=== PATIENT | male | born 1945 | race Two or more races ===

== ENCOUNTER 2023-07-12 02:04 | Inpatient (IN) | payer OTHER, MEDICAID ==
[2023-07-12] VITALS (13 sets, daily range): BP systolic 86–104; BP diastolic 48–70; PULSE 0–102; RESP 0–18; O2SAT 92–98
[~2023-07-12] VITALS: Ht 160 cm; Wt 65.8 kg
[~2023-07-12 02:04] MED LIST: FLUT250M2 IN; IPRAAER6 IN
[2023-07-12] MEDS: NOREPINEPHRINE 8 MG/250ML KIT 250 ML IV ONE (02:19)
[2023-07-12] MEDS: NOREPINEPHRINE 8 MG/250ML KIT 250 ML IV SCH (02:20)
[2023-07-12 02:50] LABS: Chloride 109 mmol/L (98-107); Potassium 4.7 mmol/L (3.5-5.1); Sodium 142 mmol/L (136-145)
[2023-07-12 02:51] LABS: Anion Gap 13 (5-15); Carbon Dioxide 20 mmol/L (20-30)
[2023-07-12 02:52] LABS: Calcium 8.7 mg/dL (8.7-10.4); Mean Corpuscular Hemoglobin 26.3 pg (28.0-32.0); Red Blood Cells 4.57 10^6/uL (4.5-5.90)
[2023-07-12 02:53] LABS: Hematocrit 41.2 % (41.0-53.0); Mean Corpuscular Hgb Conc. 29.1 g/dL (32.0-36.0); Mean Corpuscular Volume 90.1 fL (80.0-100.0); Red Cell Distribution Width 15.1 % (11.8-14.3)
[2023-07-12 02:57] LABS: BUN/Creatinine Ratio 17.1 (10.0-20.0); Blood Urea Nitrogen 19 mg/dL (9-23); Glucose 310 mg/dL (74-106); White Blood Cell 42.4 10^3/uL (4.4-10.8)
[2023-07-12 02:58] LABS: Band Neutrophils % (manual) 0; Basophils % (manual) 0 (0.0-2.0); Blast Cells 0; Eosinophils % (manual) 0 (0-7); Metamyelocytes % 0; Monocytes % (manual) 0 (0-12); Myelocytes % 0; Promyelocytes % 0
[2023-07-12] MEDS: MIDAZOLAM DRIP 50 mg/50mL 50 ML IV ONE (03:14)
[2023-07-12] MEDS: MIDAZOLAM DRIP 50 mg/50mL 50 ML IV SCH (03:20)
[2023-07-12 03:43] LABS: Large Platelets FEW; Lymphocytes % (manual) 87 (10.0-50.0); Ovalocytes FEW; Platelet Estimate Decreased; Reactive Lymphocytes 5
[2023-07-12 03:52] LABS: Urine Bacteria None Seen /hpf (None Seen)
[2023-07-12 04:01] LABS: Base Excess -10.8 mmol/L (-2.0-2.0)
[2023-07-12] MEDS: fentaNYL Drip 2500mCg/250mlNS 250 ML IV SCH (04:05)
[2023-07-12 04:19] LABS: Urine Blood 3+ /uL (Negative); Urine Clarity Ex.Turbid (Clear); Urine Color Light-Red (Yellow); Urine Hyaline Cast MOD /lpf (0 - 2); Urine Protein, UAD 3+ (Negative); Urine Specific Gravity 1.012 (1.001-1.035); Urine Sperm PRESENT /hpf (None Seen); Urine Urobilinogen Normal (Negative); Urine WBC 8 /hpf (0 - 3); Urine WBC Clumps PRESENT /hpf (None Seen); Urine pH 7.5 (5.0-9.0)
[2023-07-12 04:45] LABS: Base Excess -8.9 mmol/L (-2.0-2.0)
[2023-07-12] MEDS ORDERED: NITROGLYCERIN 0.4 MG SL TAB SL PRN (05:00)
[2023-07-12] MEDS ORDERED: ONDANSETRON HCL 4 MG/2 ML VIAL IV PRN (05:00)
[2023-07-12] MEDS ORDERED: MORPHINE SULFATE INJ 2 MG/ml SYRG IV PRN (05:00)
[2023-07-12] MEDS ORDERED: ALBUTEROL SULF 2.5 MG/0.5ML(0.5%) NEB SOLN NEB PRN (05:00)
[2023-07-12] MEDS ORDERED: ACETAMINOPHEN 325 MG TAB PO PRN (05:00)
[2023-07-12] MEDS ORDERED: VANCOMYCIN PER PHARMACY 0 MG IV SCH (05:00)
[2023-07-12] MEDS: VANCOMYCIN 1GM/200ML 200 ML IV ONE (06:44)
[2023-07-12] MEDS: SODIUM CHLORIDE 0.9% 500 ML IV ONE (06:45)
[2023-07-12] MEDS: SODIUM CHLORIDE 0.9% 1,000 ML IV ONE (06:45)
[2023-07-12] MEDS: PIPERACILLIN-TAZOB 3.375GM 100 ML IV SCH (07:00)
[2023-07-12 07:14] LABS: Lactic Acid w/Reflex 2.9 mmol/L (0.4-2.0)
[2023-07-12] MEDS: ENOXAPARIN SOD 40 MG/0.4 ML SYRINGE SC SCH (10:00)
[2023-07-12 12:22] LABS: Alanine Aminotransferase 686 U/L (7-40); Alkaline Phosphatase 128 U/L (46-116); Anion Gap 11 (5-15); Aspartate Aminotransferase 532 U/L (13-40); Calcium 8.7 mg/dL (8.5-10.1); Carbon Dioxide 21 mmol/L (20-30); Chloride 110 mmol/L (98-107); Potassium 4.7 mmol/L (3.5-5.1); Sodium 142 mmol/L (136-145)
[2023-07-12 12:23] LABS: Bilirubin, Total 0.7 mg/dL (0.2-1.0); Total Protein 5.5 g/dL (5.7-8.2)
[2023-07-12 12:27] LABS: Albumin 3.4 g/dL (3.2-4.8)
[2023-07-12 12:30] LABS: Blood Urea Nitrogen 31 mg/dL (9-23); Glucose 184 mg/dL (74-106)
[2023-07-12] MEDS: IOHEXOL 350 MG/ML 100ML IJ ONE ×2 (17:24→17:58)
[2023-07-12] MEDS: IOHEXOL 180 MG/ML 20ML VIAL IJ ONE (17:58)
[2023-07-12] MEDS: PANTOPRAZOLE 40 MG/10 ML VIAL INJ IV ONE (18:02)
[2023-07-12] MEDS: SODIUM CHLORIDE 0.9% 1,000 ML IV SCH (18:07)
[2023-07-12] MEDS: CEFEPIME 2GM/50ML NS 50 ML IV SCH (22:00)
[2023-07-12] MEDS ORDERED: CEFEPIME 1GM/ 50ML 50 ML IV SCH (22:00)
[2023-07-13] VITALS (14 sets, daily range): BP systolic 85–118; BP diastolic 49–68; PULSE 84–109; RESP 18; O2SAT 92–98
[2023-07-13] MEDS: ACETAMINOPHEN 650 mg PER 20.3 mL UD GT ONE (00:20)
[2023-07-13 05:14] LABS: Hemoglobin 12.1 g/dL (13.5-17.5)
[2023-07-13 05:17] LABS: Hematocrit 38.6 % (41.0-53.0); Mean Corpuscular Hgb Conc. 31.4 g/dL (32.0-36.0); Mean Corpuscular Volume 82.9 fL (80.0-100.0); Red Blood Cells 4.66 10^6/uL (4.5-5.90); Red Cell Distribution Width 14.8 % (11.8-14.3)
[2023-07-13 05:25] LABS: White Blood Cell 46.1 10^3/uL (4.4-10.8)
[2023-07-13 05:26] LABS: Band Neutrophils % (manual) 0; Basophils % (manual) 0 (0.0-2.0); Blast Cells 0; Eosinophils % (manual) 0 (0-7); Metamyelocytes % 0; Myelocytes % 0; Promyelocytes % 0
[2023-07-13 05:28] LABS: Alanine Aminotransferase 478 U/L (7-40); Alkaline Phosphatase 109 U/L (46-116); Anion Gap 7 (5-15); Aspartate Aminotransferase 152 U/L (13-40); BUN/Creatinine Ratio 23.1 (10.0-20.0); Blood Urea Nitrogen 33 mg/dL (9-23); Calcium 7.7 mg/dL (8.7-10.4); Carbon Dioxide 19 mmol/L (20-30); Chloride 114 mmol/L (98-107); Glucose 154 mg/dL (74-106); Potassium 4.2 mmol/L (3.5-5.1); Sodium 140 mmol/L (136-145)
[2023-07-13 05:29] LABS: Bilirubin, Total 0.6 mg/dL (0.2-1.0); Total Protein 4.8 g/dL (5.7-8.2)
[2023-07-13 06:53] LABS: Lymphocytes % (manual) 66 (10.0-50.0); Monocytes % (manual) 4 (0-12); Reactive Lymphocytes 1
[2023-07-13 07:00] LABS: Platelet Estimate Decreased; Smudge Cells 6 /100 WBC
[2023-07-13] MEDS: VANCOMYCIN 1GM/200ML 200 ML IV SCH (07:00)
[2023-07-13 07:01] LABS: Large Platelets FEW; Ovalocytes FEW
[2023-07-13 08:27] LABS: Base Excess -9.3 mmol/L (-2.0-2.0)
[2023-07-13] MEDS: PANTOPRAZOLE 40 MG/10 ML VIAL INJ IV SCH (10:37)
[2023-07-14] VITALS (13 sets, daily range): BP systolic 104–126; BP diastolic 58–78; PULSE 71–119; RESP 18–24; O2SAT 93–99
[2023-07-14 05:20] LABS: Mean Corpuscular Volume 82.2 fL (80.0-100.0)
[2023-07-14 05:21] LABS: Hemoglobin 11.3 g/dL (13.5-17.5); Mean Corpuscular Hemoglobin 25.9 pg (28.0-32.0); Mean Corpuscular Hgb Conc. 31.5 g/dL (32.0-36.0); Red Blood Cells 4.37 10^6/uL (4.5-5.90)
[2023-07-14 05:29] LABS: Chloride 116 mmol/L (98-107); Potassium 4.5 mmol/L (3.5-5.1); Sodium 143 mmol/L (136-145)
[2023-07-14 05:35] LABS: Calcium 7.7 mg/dL (8.5-10.1)
[2023-07-14 05:40] LABS: BUN/Creatinine Ratio 27.4 (10.0-20.0); Blood Urea Nitrogen 32 mg/dL (9-23); Glucose 119 mg/dL (74-106)
[2023-07-14 06:54] LABS: Anion Gap 7 (5-15); Carbon Dioxide 20 mmol/L (20-30)
[2023-07-14 07:18] LABS: Band Neutrophils % (manual) 0; Basophils % (manual) 0 (0.0-2.0); Blast Cells 0; Eosinophils % (manual) 0 (0-7); Metamyelocytes % 0; Myelocytes % 0; Promyelocytes % 0; Reactive Lymphocytes 0; White Blood Cell 31.8 10^3/uL (4.4-10.8)
[2023-07-14 08:00] LABS: Base Excess -7.6 mmol/L (-2.0-2.0)
[2023-07-14 08:59] LABS: Lymphocytes % (manual) 57 (10.0-50.0); Monocytes % (manual) 3 (0-12); Platelet Estimate Decreased; Smudge Cells 6 /100 WBC
[2023-07-14] MEDS: methylPREDNISolone SOD SUCC 40 MG/ML VL IV STA (18:49)
[2023-07-14] MEDS: IPRATROPIUM BROM 0.5 MG/2.5ML INH SOL NEB ONE (19:27)
[2023-07-14] MEDS: ALBUTEROL SULF 2.5 MG/0.5ML(0.5%) NEB SOLN NEB ONE (19:27)
[2023-07-14] MEDS: FUROSEMIDE 40 MG/4 ML VIAL IV ONE (21:57)
[2023-07-14] MEDS: methylPREDNISolone SOD SUCC 40 MG/ML VL IV SCH (22:09)
[2023-07-14] MEDS: ALBUTEROL SULF 2.5 MG/0.5ML(0.5%) NEB SOLN NEB SCH (22:34)
[2023-07-14] MEDS: IPRATROPIUM BROM 0.5 MG/2.5ML INH SOL NEB SCH (22:34)
[2023-07-15] VITALS (16 sets, daily range): BP systolic 107–132; BP diastolic 47–67; PULSE 84–122; RESP 17–23; TEMP 98.4; O2SAT 92–97
[2023-07-15 05:32] LABS: Anion Gap 12 (5-15); Calcium 8.1 mg/dL (8.7-10.4); Carbon Dioxide 18 mmol/L (20-30); Chloride 116 mmol/L (98-107); Potassium 3.7 mmol/L (3.5-5.1); Sodium 146 mmol/L (136-145)
[2023-07-15 05:33] LABS: Mean Corpuscular Hemoglobin 25.9 pg (28.0-32.0); Mean Corpuscular Hgb Conc. 31.4 g/dL (32.0-36.0); White Blood Cell 18.4 10^3/uL (4.4-10.8)
[2023-07-15 05:34] LABS: Hematocrit 33.3 % (41.0-53.0); Hemoglobin 10.5 g/dL (13.5-17.5); Mean Corpuscular Volume 82.4 fL (80.0-100.0); Red Blood Cells 4.04 10^6/uL (4.5-5.90); Red Cell Distribution Width 15.1 % (11.8-14.3)
[2023-07-15 05:38] LABS: BUN/Creatinine Ratio 35.5 (10.0-20.0)
[2023-07-15 05:41] LABS: Basophils % (manual) 0 (0.0-2.0); Blast Cells 0; Eosinophils % (manual) 0 (0-7); Metamyelocytes % 0; Myelocytes % 0; Promyelocytes % 0; Reactive Lymphocytes 0
[2023-07-15 05:42] LABS: Blood Urea Nitrogen 44 mg/dL (9-23); Glucose 247 mg/dL (74-106)
[2023-07-15 08:30] LABS: Band Neutrophils % (manual) 1; Lymphocytes % (manual) 56 (10.0-50.0); Monocytes % (manual) 1 (0-12); Smudge Cells 2 /100 WBC
[2023-07-15 08:31] LABS: Platelet Estimate Decreased; RBC Morphology Normal
[2023-07-15] MEDS: D5W 5% 1,000 ML IV SCH (09:44)
[2023-07-15 17:17] LABS: INR 0.97 (0.9-1.15); Partial Thromboplastin Time 21.8 SEC (24.5-34.5); Prothrombin Time 10.3 sec (9.3-11.8)
[2023-07-16] VITALS (101 sets, daily range): BP systolic 123–152; BP diastolic 58–86; PULSE 68–102; RESP 12–26; TEMP 96.1–99; O2SAT 91–98
[2023-07-16] MEDS ORDERED: DEXTROSE (50%) 50ML SYRG IV PRN (00:45)
[2023-07-16 03:52] LABS: Basophils # (auto) 0 10 ^3/uL (0-0.2); Eosinophils # (auto) 0 10 ^3/uL (0-0.8); Lymphocytes # (auto) 8.9 10 ^3/uL (0.4-5.4)
[2023-07-16 03:54] LABS: Hematocrit 30.6 % (41.0-53.0); Lymphocytes % (auto) 45.9 % (10.0-50.0); Mean Corpuscular Hemoglobin 26.1 pg (28.0-32.0); Mean Corpuscular Hgb Conc. 32.6 g/dL (32.0-36.0); Monocytes # (auto) 0.7 10 ^3/uL (0-1.3); Monocytes % (auto) 3.5 % (0.0-12.0); Neutrophils # (auto) 9.8 10 ^3/uL (1.6-8.6); Neutrophils % (auto) 50.6 % (37.0-80.0); Nucleated Red Blood Cells % 0.1 %; Red Blood Cells 3.83 10^6/uL (4.5-5.90); Red Cell Distribution Width 14.6 % (11.8-14.3); White Blood Cell 19.4 10^3/uL (4.4-10.8)
[2023-07-16 04:01] LABS: Anion Gap 11 (5-15); Carbon Dioxide 20 mmol/L (20-30); Chloride 113 mmol/L (98-107); Potassium 3.5 mmol/L (3.5-5.1); Sodium 144 mmol/L (136-145)
[2023-07-16 04:02] LABS: Calcium 8.7 mg/dL (8.7-10.4)
[2023-07-16 04:07] LABS: BUN/Creatinine Ratio 51.1 (10.0-20.0); Blood Urea Nitrogen 45 mg/dL (9-23); Glucose 178 mg/dL (74-106)
[2023-07-16] MEDS: ACCU-CHEK COMFORT CURVE STRIP VI SCH (06:38)
[2023-07-16] MEDS: InsuLIN REG 1unit/0.01ml Soln (100units/ml) SC SCH (06:40)
[2023-07-16 07:42] LABS: Base Excess -4.3 mmol/L (-2.0-2.0)
[2023-07-16] MEDS: POTASSIUM CHLORIDE 20 MEQ, LIDOCAINE 1% (LOCAL ANESTH.) 2 ML in SODIUM CHL 0.9% 100 ML IV ONE (10:45)
[2023-07-16] MEDS: FUROSEMIDE 40 MG/4 ML VIAL IV ONE (17:25)
[2023-07-17] VITALS (109 sets, daily range): BP systolic 121–153; BP diastolic 64–77; PULSE 74–103; RESP 16–27; TEMP 97.1–99.4; O2SAT 93–98
[2023-07-17 04:06] LABS: Anion Gap 10 (5-15); Carbon Dioxide 23 mmol/L (20-30); Chloride 111 mmol/L (98-107); Mean Corpuscular Hemoglobin 26.5 pg (28.0-32.0); Potassium 3.5 mmol/L (3.5-5.1); Sodium 144 mmol/L (136-145)
[2023-07-17 04:07] LABS: Calcium 8.9 mg/dL (8.7-10.4); Hematocrit 33.2 % (41.0-53.0); Hemoglobin 10.9 g/dL (13.5-17.5); Mean Corpuscular Hgb Conc. 32.8 g/dL (32.0-36.0); Mean Corpuscular Volume 80.6 fL (80.0-100.0); Red Blood Cells 4.12 10^6/uL (4.5-5.90); Red Cell Distribution Width 14.3 % (11.8-14.3); White Blood Cell 20.3 10^3/uL (4.4-10.8)
[2023-07-17 04:12] LABS: BUN/Creatinine Ratio 51.6 (10.0-20.0); Blood Urea Nitrogen 49 mg/dL (9-23); Glucose 139 mg/dL (74-106)
[2023-07-17 04:14] LABS: Basophils % (manual) 0 (0.0-2.0); Blast Cells 0; Eosinophils % (manual) 0 (0-7); Metamyelocytes % 0; Myelocytes % 0; Promyelocytes % 0; Reactive Lymphocytes 0
[2023-07-17 07:58] LABS: Base Excess -0.9 mmol/L (-2.0-2.0)
[2023-07-17 08:01] LABS: Band Neutrophils % (manual) 2; Lymphocytes % (manual) 46 (10.0-50.0); Monocytes % (manual) 2 (0-12); Platelet Estimate Decreased
[2023-07-17] MEDS: AMPICILLIN & SULBACTAM SODIUM 3 GM in SODIUM CHL 0.9% 100 ML IV SCH (16:00)
[2023-07-17] MEDS ORDERED: EPINEPHrine HCL 0.5 ML NEB NEB ONE (18:30)
[2023-07-17] MEDS ORDERED: DexAMETHasone SOD PHOS 10MG/1ML VIAL INJ IV SCH (18:30)
[2023-07-18] VITALS (87 sets, daily range): BP systolic 103–154; BP diastolic 55–95; PULSE 77–112; RESP 13–24; TEMP 97–98.8; O2SAT 91–98
[2023-07-18 08:31] LABS: Base Excess -1.6 mmol/L (-2.0-2.0)
[2023-07-18 11:01] LABS: Chloride 116 mmol/L (98-107); Potassium 3.9 mmol/L (3.5-5.1); Sodium 148 mmol/L (136-145)
[2023-07-18 11:02] LABS: Anion Gap 5 (5-15); Calcium 8.6 mg/dL (8.5-10.1); Carbon Dioxide 27 mmol/L (20-30)
[2023-07-18 11:07] LABS: BUN/Creatinine Ratio 64.3 (10.0-20.0); Blood Urea Nitrogen 45 mg/dL (9-23); Glucose 110 mg/dL (74-106)
[2023-07-18 14:43] LABS: T3 Total 1.03 ng/mL (0.60-1.81)
[2023-07-18 14:44] LABS: Free T4 (Free Thyroxine) 1.32 ng/dL (0.89-1.76)
[2023-07-19] VITALS (107 sets, daily range): BP systolic 92–121; BP diastolic 45–66; PULSE 61–89; RESP 14–22; TEMP 97.5–98.6; O2SAT 93–100
[2023-07-19 03:59] LABS: Anion Gap 6 (5-15); Calcium 8.6 mg/dL (8.7-10.4); Carbon Dioxide 25 mmol/L (20-30); Chloride 116 mmol/L (98-107); Mean Corpuscular Volume 81.5 fL (80.0-100.0); Sodium 147 mmol/L (136-145)
[2023-07-19 04:02] LABS: Hematocrit 31.6 % (41.0-53.0); Hemoglobin 10.3 g/dL (13.5-17.5); Mean Corpuscular Hemoglobin 26.6 pg (28.0-32.0); Mean Corpuscular Hgb Conc. 32.6 g/dL (32.0-36.0); Red Blood Cells 3.88 10^6/uL (4.5-5.90); Red Cell Distribution Width 14.6 % (11.8-14.3); White Blood Cell 18.4 10^3/uL (4.4-10.8)
[2023-07-19 04:05] LABS: Glucose 133 mg/dL (74-106)
[2023-07-19 04:10] LABS: Blood Urea Nitrogen 35 mg/dL (9-23)
[2023-07-19 05:08] LABS: Basophils % (manual) 0 (0.0-2.0); Blast Cells 0; Eosinophils % (manual) 0 (0-7); Promyelocytes % 0; Reactive Lymphocytes 0
[2023-07-19 05:12] LABS: Band Neutrophils % (manual) 9; Large Platelets FEW; Lymphocytes % (manual) 12 (10.0-50.0); Metamyelocytes % 6; Monocytes % (manual) 6 (0-12); Myelocytes % 14; Platelet Estimate Decrea
[2023-07-19 06:58] LABS: Base Excess -0.1 mmol/L (-2.0-2.0)
[2023-07-20] VITALS (104 sets, daily range): BP systolic 96–132; BP diastolic 47–64; PULSE 58–77; RESP 14–19; TEMP 97.6–98.3; O2SAT 94–100
[2023-07-20 04:26] LABS: Basophils # (auto) 0 10 ^3/uL (0-0.2); Basophils % (auto) 0.1 % (0.0-2.0); Eosinophils # (auto) 0.1 10 ^3/uL (0-0.8); Hemoglobin 9.6 g/dL (13.5-17.5)
[2023-07-20 04:29] LABS: Eosinophils % (auto) 0.7 % (0.0-7.0); Hematocrit 29.6 % (41.0-53.0); Lymphocytes # (auto) 5.7 10 ^3/uL (0.4-5.4); Lymphocytes % (auto) 41.5 % (10.0-50.0); Mean Corpuscular Hemoglobin 26.4 pg (28.0-32.0); Mean Corpuscular Hgb Conc. 32.2 g/dL (32.0-36.0); Monocytes # (auto) 0.6 10 ^3/uL (0-1.3); Monocytes % (auto) 4.1 % (0.0-12.0); Neutrophils # (auto) 7.4 10 ^3/uL (1.6-8.6); Neutrophils % (auto) 53.6 % (37.0-80.0); Red Blood Cells 3.61 10^6/uL (4.5-5.90); White Blood Cell 13.7 10^3/uL (4.4-10.8)
[2023-07-20 04:32] LABS: Calcium 8.1 mg/dL (8.5-10.1); Chloride 112 mmol/L (98-107); Sodium 145 mmol/L (136-145)
[2023-07-20 04:33] LABS: Anion Gap 6 (5-15); Carbon Dioxide 27 mmol/L (20-30)
[2023-07-20 04:38] LABS: BUN/Creatinine Ratio 53.3 (10.0-20.0); Blood Urea Nitrogen 32 mg/dL (9-23); Glucose 132 mg/dL (74-106)
[2023-07-20 06:57] LABS: Base Excess 0.2 mmol/L (-2.0-2.0)
[2023-07-21] VITALS (107 sets, daily range): BP systolic 91–126; BP diastolic 46–64; PULSE 62–75; RESP 13–20; TEMP 96.8–98.2; O2SAT 95–100
[2023-07-21 03:38] LABS: Basophils # (auto) 0 10 ^3/uL (0-0.2); Basophils % (auto) 0.2 % (0.0-2.0); Eosinophils # (auto) 0.2 10 ^3/uL (0-0.8); Eosinophils % (auto) 1.3 % (0.0-7.0); Hematocrit 29.3 % (41.0-53.0); Hemoglobin 9.3 g/dL (13.5-17.5); Lymphocytes # (auto) 6.1 10 ^3/uL (0.4-5.4); Lymphocytes % (auto) 42.1 % (10.0-50.0); Mean Corpuscular Hemoglobin 25.6 pg (28.0-32.0); Mean Corpuscular Hgb Conc. 31.7 g/dL (32.0-36.0); Mean Corpuscular Volume 80.9 fL (80.0-100.0); Monocytes # (auto) 0.6 10 ^3/uL (0-1.3); Monocytes % (auto) 4.2 % (0.0-12.0); Neutrophils # (auto) 7.6 10 ^3/uL (1.6-8.6); Neutrophils % (auto) 52.2 % (37.0-80.0); Nucleated Red Blood Cells % 0.1 %; Red Blood Cells 3.62 10^6/uL (4.5-5.90); Red Cell Distribution Width 14.6 % (11.8-14.3); White Blood Cell 14.5 10^3/uL (4.4-10.8)
[2023-07-21 03:55] LABS: Chloride 110 mmol/L (98-107); Potassium 4.1 mmol/L (3.5-5.1); Sodium 141 mmol/L (136-145)
[2023-07-21 03:56] LABS: Anion Gap 5 (5-15); Calcium 8.3 mg/dL (8.7-10.4); Carbon Dioxide 26 mmol/L (20-30)
[2023-07-21 04:01] LABS: BUN/Creatinine Ratio 36.4 (10.0-20.0); Blood Urea Nitrogen 20 mg/dL (9-23); Glucose 126 mg/dL (74-106)
[2023-07-21 06:52] LABS: Base Excess 0.4 mmol/L (-2.0-2.0)
[2023-07-21] MEDS: fentaNYL Drip 2500mCg/250mlNS 250 ML IV SCH (08:29)
[2023-07-22] VITALS (104 sets, daily range): BP systolic 98–135; BP diastolic 41–68; PULSE 59–79; RESP 13–20; TEMP 96.6–98.2; O2SAT 90–100
[2023-07-22 04:06] LABS: Basophils # (auto) 0 10 ^3/uL (0-0.2); Basophils % (auto) 0.1 % (0.0-2.0); Eosinophils # (auto) 0.2 10 ^3/uL (0-0.8); Eosinophils % (auto) 1.3 % (0.0-7.0); Hematocrit 30.1 % (41.0-53.0); Hemoglobin 9.5 g/dL (13.5-17.5); Lymphocytes # (auto) 6.3 10 ^3/uL (0.4-5.4); Lymphocytes % (auto) 41.2 % (10.0-50.0); Mean Corpuscular Hemoglobin 25.8 pg (28.0-32.0); Mean Corpuscular Hgb Conc. 31.6 g/dL (32.0-36.0); Mean Corpuscular Volume 81.6 fL (80.0-100.0); Monocytes # (auto) 0.7 10 ^3/uL (0-1.3); Monocytes % (auto) 4.3 % (0.0-12.0); Neutrophils # (auto) 8.2 10 ^3/uL (1.6-8.6); Neutrophils % (auto) 53.1 % (37.0-80.0); Red Blood Cells 3.69 10^6/uL (4.5-5.90); Red Cell Distribution Width 14.3 % (11.8-14.3); White Blood Cell 15.4 10^3/uL (4.4-10.8)
[2023-07-22 04:10] LABS: Anion Gap 5 (5-15); Carbon Dioxide 26 mmol/L (20-30); Chloride 111 mmol/L (98-107); Sodium 142 mmol/L (136-145)
[2023-07-22 04:11] LABS: Calcium 8.2 mg/dL (8.7-10.4)
[2023-07-22 04:16] LABS: BUN/Creatinine Ratio 28.6 (10.0-20.0); Blood Urea Nitrogen 16 mg/dL (9-23); Glucose 99 mg/dL (74-106)
[2023-07-22 07:23] LABS: Base Excess -1.6 mmol/L (-2.0-2.0)
[2023-07-23] VITALS (65 sets, daily range): BP systolic 100–152; BP diastolic 44–70; PULSE 64–114; RESP 14–21; TEMP 96.6–98.6; O2SAT 93–100
[2023-07-23 04:00] LABS: Basophils # (auto) 0 10 ^3/uL (0-0.2); Basophils % (auto) 0.2 % (0.0-2.0); Eosinophils # (auto) 0.2 10 ^3/uL (0-0.8); Eosinophils % (auto) 1.5 % (0.0-7.0); Lymphocytes # (auto) 6.8 10 ^3/uL (0.4-5.4); Neutrophils % (auto) 50.3 % (37.0-80.0); Nucleated Red Blood Cells % 0.1 %
[2023-07-23 04:02] LABS: Hematocrit 31.3 % (41.0-53.0); Hemoglobin 9.8 g/dL (13.5-17.5); Lymphocytes % (auto) 42.9 % (10.0-50.0); Mean Corpuscular Hemoglobin 26.2 pg (28.0-32.0); Mean Corpuscular Hgb Conc. 31.3 g/dL (32.0-36.0); Monocytes # (auto) 0.8 10 ^3/uL (0-1.3); Monocytes % (auto) 5.1 % (0.0-12.0); Red Blood Cells 3.73 10^6/uL (4.5-5.90); White Blood Cell 15.9 10^3/uL (4.4-10.8)
[2023-07-23 04:37] LABS: Anion Gap 7 (5-15); Calcium 8.3 mg/dL (8.5-10.1); Carbon Dioxide 25 mmol/L (20-30); Chloride 110 mmol/L (98-107); Potassium 3.9 mmol/L (3.5-5.1); Sodium 142 mmol/L (136-145)
[2023-07-23 04:43] LABS: BUN/Creatinine Ratio 26.2 (10.0-20.0); Blood Urea Nitrogen 16 mg/dL (9-23); Glucose 107 mg/dL (74-106)
[2023-07-24] VITALS (38 sets, daily range): BP systolic 127–153; BP diastolic 63–73; PULSE 65–79; RESP 16–20; TEMP 96.5–98.2; O2SAT 95–99
[2023-07-24 07:18] LABS: Base Excess -1.3 mmol/L (-2.0-2.0)
[2023-07-24 08:19] LABS: Anion Gap 8 (5-15); Carbon Dioxide 24 mmol/L (20-30); Chloride 111 mmol/L (98-107); Potassium 3.7 mmol/L (3.5-5.1); Sodium 143 mmol/L (136-145)
[2023-07-24 08:20] LABS: Calcium 8.6 mg/dL (8.5-10.1)
[2023-07-24 08:21] LABS: Basophils # (auto) 0 10 ^3/uL (0-0.2); Basophils % (auto) 0.1 % (0.0-2.0); Eosinophils # (auto) 0.2 10 ^3/uL (0-0.8); Hemoglobin 9.9 g/dL (13.5-17.5)
[2023-07-24 08:23] LABS: Eosinophils % (auto) 1.1 % (0.0-7.0); Lymphocytes % (auto) 41.7 % (10.0-50.0); Mean Corpuscular Hemoglobin 25.8 pg (28.0-32.0); Mean Corpuscular Hgb Conc. 31.9 g/dL (32.0-36.0); Mean Corpuscular Volume 80.9 fL (80.0-100.0); Monocytes # (auto) 0.8 10 ^3/uL (0-1.3); Neutrophils # (auto) 8.8 10 ^3/uL (1.6-8.6); Neutrophils % (auto) 52.1 % (37.0-80.0); Red Blood Cells 3.83 10^6/uL (4.5-5.90); Red Cell Distribution Width 14.5 % (11.8-14.3); White Blood Cell 16.8 10^3/uL (4.4-10.8)
[2023-07-24 08:26] LABS: BUN/Creatinine Ratio 30.9 (10.0-20.0); Blood Urea Nitrogen 17 mg/dL (9-23); Glucose 100 mg/dL (74-106)
[2023-07-24] MEDS: LACTULOSE 20Gm/30ML SOLN PO ONE (16:28)
[2023-07-24] MEDS: DOCUSATE SOD 100 MG CAP PO ONE (16:28)
[2023-07-24] MEDS: LACTULOSE 20Gm/30ML SOLN PO SCH (21:48)
[2023-07-24] MEDS: metroNIDAZOLE 500MG/100ML 100 ML IV SCH (21:48)
[2023-07-24] MEDS: DOCUSATE SOD 100 MG CAP PO SCH (21:48)
[2023-07-25] VITALS (89 sets, daily range): BP systolic 120–148; BP diastolic 40–81; PULSE 75–96; RESP 14–32; TEMP 97–98.6; O2SAT 70–100
[2023-07-25 04:10] LABS: Basophils # (auto) 0 10 ^3/uL (0-0.2); Basophils % (auto) 0.3 % (0.0-2.0); Eosinophils # (auto) 0.1 10 ^3/uL (0-0.8); Monocytes # (auto) 0.9 10 ^3/uL (0-1.3); Red Cell Distribution Width 14.4 % (11.8-14.3)
[2023-07-25 04:15] LABS: Eosinophils % (auto) 0.6 % (0.0-7.0); Hematocrit 31.2 % (41.0-53.0); Hemoglobin 10.2 g/dL (13.5-17.5); Lymphocytes # (auto) 8.6 10 ^3/uL (0.4-5.4); Lymphocytes % (auto) 47.2 % (10.0-50.0); Mean Corpuscular Hemoglobin 26.3 pg (28.0-32.0); Mean Corpuscular Hgb Conc. 32.6 g/dL (32.0-36.0); Mean Corpuscular Volume 80.6 fL (80.0-100.0); Neutrophils # (auto) 8.6 10 ^3/uL (1.6-8.6); Neutrophils % (auto) 46.9 % (37.0-80.0); Red Blood Cells 3.88 10^6/uL (4.5-5.90); White Blood Cell 18.2 10^3/uL (4.4-10.8)
[2023-07-25 04:32] LABS: Alanine Aminotransferase 53 U/L (7-40); Alkaline Phosphatase 225 U/L (46-116); Anion Gap 8 (5-15); Aspartate Aminotransferase 54 U/L (13-40); BUN/Creatinine Ratio 26.3 (10.0-20.0); Blood Urea Nitrogen 15 mg/dL (9-23); Calcium 8.6 mg/dL (8.5-10.1); Carbon Dioxide 24 mmol/L (20-30); Chloride 109 mmol/L (98-107); Glucose 110 mg/dL (74-106); Potassium 3.7 mmol/L (3.5-5.1); Sodium 141 mmol/L (136-145)
[2023-07-25 04:33] LABS: Bilirubin, Total 0.6 mg/dL (0.2-1.0); Total Protein 5.2 g/dL (5.7-8.2)
[2023-07-25 07:26] LABS: Base Excess -0.3 mmol/L (-2.0-2.0)
[2023-07-26] VITALS (75 sets, daily range): BP systolic 113–147; BP diastolic 60–81; PULSE 80–99; RESP 16–24; TEMP 97.8–99.2; O2SAT 94–99
[2023-07-26] MEDS: Jevity 1.2 Cal/Fiber 1 Liter GT SCH (00:11)
[2023-07-26 03:55] LABS: Hemoglobin 11.3 g/dL (13.5-17.5); Red Cell Distribution Width 14.6 % (11.8-14.3)
[2023-07-26 04:02] LABS: Hematocrit 34.7 % (41.0-53.0); Mean Corpuscular Hemoglobin 26.3 pg (28.0-32.0); Mean Corpuscular Hgb Conc. 32.5 g/dL (32.0-36.0); Red Blood Cells 4.28 10^6/uL (4.5-5.90)
[2023-07-26 04:03] LABS: Chloride 110 mmol/L (98-107); Potassium 3.5 mmol/L (3.5-5.1); Sodium 142 mmol/L (136-145)
[2023-07-26 04:04] LABS: Anion Gap 9 (5-15); Carbon Dioxide 23 mmol/L (20-30)
[2023-07-26 04:05] LABS: Calcium 8.6 mg/dL (8.5-10.1)
[2023-07-26 04:06] LABS: Band Neutrophils % (manual) 0; Basophils % (manual) 0 (0.0-2.0); Blast Cells 0; Eosinophils % (manual) 0 (0-7); Metamyelocytes % 0; Myelocytes % 0; Promyelocytes % 0
[2023-07-26 04:09] LABS: Blood Urea Nitrogen 19 mg/dL (9-23); Glucose 98 mg/dL (74-106)
[2023-07-26 04:50] LABS: Lymphocytes % (manual) 48 (10.0-50.0); Monocytes % (manual) 5 (0-12); Platelet Estimate Decreased; Reactive Lymphocytes 14
[2023-07-27] VITALS (21 sets, daily range): BP systolic 103–136; BP diastolic 50–75; PULSE 81–103; RESP 13–21; TEMP 97.9–98.1; O2SAT 80–99
[2023-07-27 04:13] LABS: Hematocrit 34.4 % (41.0-53.0); Mean Corpuscular Hemoglobin 25.8 pg (28.0-32.0); Mean Corpuscular Hgb Conc. 31.9 g/dL (32.0-36.0); Mean Corpuscular Volume 80.9 fL (80.0-100.0); Red Blood Cells 4.25 10^6/uL (4.5-5.90); Red Cell Distribution Width 14.8 % (11.8-14.3); White Blood Cell 20.4 10^3/uL (4.4-10.8)
[2023-07-27 04:19] LABS: Chloride 108 mmol/L (98-107); Potassium 3.7 mmol/L (3.5-5.1); Sodium 140 mmol/L (136-145)
[2023-07-27 04:20] LABS: Anion Gap 8 (5-15); Calcium 8.8 mg/dL (8.5-10.1); Carbon Dioxide 24 mmol/L (20-30)
[2023-07-27 04:21] LABS: Basophils % (manual) 0 (0.0-2.0); Blast Cells 0; Metamyelocytes % 0; Myelocytes % 0; Promyelocytes % 0; Reactive Lymphocytes 0
[2023-07-27 04:25] LABS: BUN/Creatinine Ratio 31.4 (10.0-20.0); Blood Urea Nitrogen 22 mg/dL (9-23); Glucose 103 mg/dL (74-106)
[2023-07-27 08:11] LABS: Band Neutrophils % (manual) 4; Eosinophils % (manual) 1 (0-7); Lymphocytes % (manual) 68 (10.0-50.0); Monocytes % (manual) 4 (0-12); Platelet Estimate Decreased
[2023-07-27] MEDS: MORPHINE SULFATE INJ 2 MG/ml SYRG IV PRN ×2 (12:29→13:01)
[2023-07-27] MEDS: LORazepam 2MG/ML-1ML VIAL IV PRN (12:30)
== END 2023-07-27 18:45 | DRG 870 ==
LOC: ER 02:04 → EDBD 02:04 → TELE 05:04 → ICU WEST 07-15 23:29
PROVIDERS: ADMIT Internal Medicine Pulmonary Disease; ATTEND Internal Medicine Pulmonary Disease
PROC: 5A1955Z Respiratory Ventilation, Greater than 96 Consecutive Hours (ICD-10-PCS; principal; 2023-07-12)
PROC: 0BH18EZ Insertion of Endotracheal Airway into Trachea, Via Natural or Artificial Opening Endoscopic (ICD-10-PCS; 2023-07-12)
PROC: 5A12012 Performance of Cardiac Output, Single, Manual (ICD-10-PCS; 2023-07-12)
PROC: 02HV33Z Insertion of Infusion Device into Superior Vena Cava, Percutaneous Approach (ICD-10-PCS; 2023-07-12)
PROC: B548ZZA Ultrasonography of Superior Vena Cava, Guidance (ICD-10-PCS; 2023-07-12)
DX: A41.9 Sepsis, unspecified organism (principal); I21.A1 Myocardial infarction type 2; R65.21 Severe sepsis with septic shock; N17.0 Acute kidney failure with tubular necrosis; J96.01 Acute respiratory failure with hypoxia; G92.8 Other toxic encephalopathy; J15.69 Pneumonia due to other Gram-negative bacteria; J15.9 Unspecified bacterial pneumonia; I63.549 Cerebral infarction due to unspecified occlusion or stenosis of unspecified cerebellar artery; J44.0 Chronic obstructive pulmonary disease with (acute) lower respiratory infection; N39.0 Urinary tract infection, site not specified; G93.1 Anoxic brain damage, not elsewhere classified; K92.2 Gastrointestinal hemorrhage, unspecified; J44.1 Chronic obstructive pulmonary disease with (acute) exacerbation; I46.9 Cardiac arrest, cause unspecified; D64.9 Anemia, unspecified; I10 Essential (primary) hypertension; E88.09 Other disorders of plasma-protein metabolism, not elsewhere classified; K59.00 Constipation, unspecified; E07.81 Sick-euthyroid syndrome; R73.9 Hyperglycemia, unspecified; F17.200 Nicotine dependence, unspecified, uncomplicated; D69.6 Thrombocytopenia, unspecified; R74.01 Elevation of levels of liver transaminase levels; Z51.5 Encounter for palliative care
CPT/HCPCS: 36415; 36600; 70450; 70551; 71045; 71275; 74018; 74021; 80048; 80053; 81001; 82805; 82962; 83036; 83605; 83735; 83880; 84439; 84443; 84480; 84484; 85007; 85025; 85027; 85379; 85384; 85610; 85730; 87040; 87070; 87077; 87081; 87086; 87186; 87205; 92950; 93005; 93306; 93970; 93971; 94002; 94003; 94640; 95819; 96365; 99291; C9113; G0378; J0692; J2001; J2250; J2543; J3490; J7060; Q9965